=== PATIENT | male | born 1985 | race Caucasian/White ===

== ENCOUNTER 2017-04-20 02:48 | Emergency (ER) | payer OTHER ==
[2017-04-20 03:27] LABS: HEMOGLOBIN 14.9 gm/dl (14.0-17.5); RED BLOOD COUNT 5.13 M/UL (4.20-5.50); WHITE BLOOD COUNT 14.6 K/UL (4.5-11.0)
[2017-04-20 03:46] LABS: BUN/CREATININE RATIO 13 (0-10)
== END 2017-04-20 05:25 | disposition home or self-care (01) ==
LOC: ER1 02:48
PROVIDERS: Family Medicine
DX: N20.0 Calculus of kidney (principal); Z79.899 Other long term (current) drug therapy
CPT/HCPCS: 36415; 80053; 81001; 82150; 83690; 85025; 96374; 96375; 99284; J1885; J2270; J2405